=== PATIENT | female | born 1985 | race Caucasian/White ===

== ENCOUNTER → 2018-09-05 | Outpatient (CLI) | payer BC ==
[~2018-09-05] MED LIST: LOR5/325 PO
== END ==
LOC: LAB 14:32
PROVIDERS: ATTEND Obstetrics & Gynecology
DX: N64.52 Nipple discharge (principal)
CPT/HCPCS: 87071

== ENCOUNTER → 2018-10-05 | Outpatient (CLI) | payer BC ==
[~2018-10-05] MED LIST changes: +GADOBENATE 529MG/1ML 15ML VIAL IVP ONE; +NS(*) 0.9% 50 ML BAG 50 ML ONE
--- NOTE | 2018-10-05 10:04 | RADIOLOGY IMAGING REPORT ---
FACILITY: [facility] - [place] PATIENT NAME: Abeba Yoon : 1985 MR: [id number] V: [id number] EXAM DATE: ORDERING PHYSICIAN: FLY SEBASTIAN TECHNOLOGIST: Location: [facility] [place] Patient: Abeba Yoon : 1985 Visit/Account:[id number] Date of Sevice: 10/05/2018 EXAMINATION: MRI pituitary protocol without and with intravenous contrast HISTORY: Nipple discharge. Blurry vision. COMPARISON: None available. TECHNIQUE: Multiplanar, multisequence pituitary protocol MRI without and with IV contrast. CONTRAST: 13 mL of IV MultiHance FINDINGS: Pituitary: Pituitary gland: Negative. Cavernous sinuses: Negative. Suprasellar cistern: Negative. Visualized optic nerves / chiasm / tracts: Negative. Rest of brain: Moderate mucosal thickening in the left maxillary sinus. IMPRESSION: 1. Moderate mucosal thickening in left maxillary sinus. 2. Otherwise normal pituitary protocol MRI without and with IV contrast. Report Dictated By: Angel Díaz MD at 10/05/2018 9:55 AM Report E-Signed By: Angel Díaz MD at 10/05/2018 10:00 AM WSN:[id number]
== END ==
LOC: MRI 00:24
PROVIDERS: ATTEND Obstetrics & Gynecology
DX: N64.52 Nipple discharge (principal); H53.9 Unspecified visual disturbance
CPT/HCPCS: 70553; A9577; J7050